=== PATIENT | male | born 1980 | race Caucasian/White ===

== ENCOUNTER 2018-06-15 11:24 | Emergency (ER) | payer OTHER ==
[~2018-06-15] VITALS: Ht 180.3 cm; Wt 111.1 kg
[~2018-06-15 11:24] MED LIST: ACID CONTROL20 MG PO; ALLEGRA PO; ARIXTRA SC; BACTRIM DS TAB1 EACH PO; CARISOPRODOL 3350 MG PO; CELEXA 20 MG TA20 M1 PO; CLONAZEPAM 1 MG1 M1 PO; CLONOPIN PO; COLACE 100 MG100 MG PO; CYCLOBENZAPRINE10 MG PO; CYCLOBENZAPRINE5 MG PO; FLEXERIL PO; NAPROSYN500 MG PO; NORCO 5-325 TA1 EACH PO; OXYCODONE HCL5 M1 PO; PERCOCET 5-3251 EACH PO; PERCOCET PO; TRAMADOL 50 MG50 MG; ULTRAM 50MG TAB50 MG PO
[2018-06-15] MEDS ORDERED: TRIAMCINOLONE A80 G2 TOP (12:14)
[2018-06-15] MEDS ORDERED: HYDROXYZINE HCL25 M1 PO (12:14)
[2018-06-15] MEDS ORDERED: PREDNISONE 10 M10 MG PO (12:14)
[2018-06-15 12:30] VITALS: BP 155/90
== END 2018-06-15 12:30 | disposition home or self-care (01) ==
LOC: M.ERS 11:24
DX: R21 Rash and other nonspecific skin eruption (principal); Z88.8 Allergy status to other drugs, medicaments and biological substances; Z96.642 Presence of left artificial hip joint

== ENCOUNTER 2020-04-30 08:33 | Emergency (ER) | payer OTHER ==
[~2020-04-30] VITALS: Ht 180.3 cm; Wt 111.1 kg
[~2020-04-30 08:33] MED LIST changes: +HYDROXYZINE HCL25 M1 PO; +PREDNISONE 10 M10 MG PO; +TRIAMCINOLONE A80 G2 TOP
[2020-04-30 08:45] VITALS: BP 181/82
[2020-04-30] MEDS ORDERED: AUGMENTIN 875-1 EACH PO (09:06)
== END 2020-04-30 09:21 | disposition home or self-care (01) ==
LOC: M.ERS 08:33
DX: H66.91 Otitis media, unspecified, right ear (principal); M54.2 Cervicalgia; J02.9 Acute pharyngitis, unspecified; H93.13 Tinnitus, bilateral; Z88.8 Allergy status to other drugs, medicaments and biological substances

== ENCOUNTER 2021-02-17 12:32 | Emergency (ER) | payer OTHER ==
[~2021-02-17] VITALS: Ht 180.3 cm; Wt 113.4 kg
[~2021-02-17 12:32] MED LIST changes: +AUGMENTIN 875-1 EACH PO
[2021-02-17] MEDS ORDERED: ZESTRIL40 MG PO (12:54)
[2021-02-17 13:55] VITALS: BP 112/70
== END 2021-02-17 13:56 | disposition home or self-care (01) ==
LOC: M.ERS 12:32
DX: U07.1 COVID-19 (principal); L40.9 Psoriasis, unspecified; Z96.642 Presence of left artificial hip joint; Z88.8 Allergy status to other drugs, medicaments and biological substances

== ENCOUNTER 2021-02-24 12:38 | Emergency (ER) | payer OTHER ==
[~2021-02-24] VITALS: Ht 180.3 cm; Wt 113.4 kg
[~2021-02-24 12:38] MED LIST changes: +ZESTRIL40 MG PO
[2021-02-24] MEDS ORDERED: PROZAC10 M1 PO (12:46)
[2021-02-24] MEDS ORDERED: PREDNISONE 20 M20 MG PO (14:52)
[2021-02-24 14:58] VITALS: BP 137/79
== END 2021-02-24 14:59 | disposition home or self-care (01) ==
LOC: M.ERS 12:38
DX: U07.1 COVID-19 (principal); I10 Essential (primary) hypertension; L40.9 Psoriasis, unspecified; Z88.8 Allergy status to other drugs, medicaments and biological substances; Z96.642 Presence of left artificial hip joint